=== PATIENT | male | born 1965 | race Caucasian/White ===

== ENCOUNTER 2016-11-12 13:44 | Outpatient (CLI) | payer MEDICARE | END 2016-11-12 13:45 | disposition home or self-care (01) | DX: R06.02 Shortness of breath (principal) ==

== ENCOUNTER 2016-11-27 13:30 | Outpatient (CLI) | payer MEDICARE ==
[2016-11-27] MEDS ORDERED: ALBUTEROL NEB 2.5 MG/3 ML INH ONE (14:15)
== END 2016-11-27 13:31 | disposition home or self-care (01) ==
DX: R06.02 Shortness of breath (principal); F17.201 Nicotine dependence, unspecified, in remission
CPT/HCPCS: 94060; 94664; 94729; 94761; J7613

== ENCOUNTER 2016-12-18 18:36 | Outpatient (CLI) | payer MEDICARE | END 2016-12-18 23:59 | disposition critical access hospital (66) | DX: R07.9 Chest pain, unspecified (principal) | CPT/HCPCS: A0425; A0427 ==

== ENCOUNTER 2016-12-18 18:58 | Observation (INO) | payer MEDICARE ==
[2016-12-18] MEDS ORDERED: ASPIRIN CHEW 81 MG TABLET PO STA (20:36)
[2016-12-18] MEDS ORDERED: SODIUM CHLORIDE FLUSH 0.9% 10 ML SYRINGE IVP PRN (21:43)
[2016-12-18] MEDS ORDERED: ONDANSETRON ODT 4 MG TABLET TL PRN (21:43)
[2016-12-18] MEDS ORDERED: ONDANSETRON 4 MG/2 ML VIAL IVP PRN (21:43)
[2016-12-18] MEDS ORDERED: oxyCODONE 5 MG TABLET PO PRN (22:07)
[2016-12-19] MEDS: SODIUM CHLORIDE FLUSH 0.9% 10 ML SYRINGE IVP SCH ×2 (00:37→06:42)
[2016-12-19] MEDS: NITROGLYCERIN SL 0.4 MG TABLET SL PRN ×2 (01:12→01:21)
[2016-12-19] MEDS ORDERED: LORazepam 0.5 MG TABLET PO PRN ×2 (02:06→06:27)
[2016-12-19] MEDS ORDERED: RIFAXIMIN 550 MG PO SCH (09:00)
[2016-12-19] MEDS ORDERED: NADOLOL 20 MG PO SCH (09:00)
[2016-12-19] MEDS ORDERED: LACTULOSE 30 GM PO SCH (09:00)
[2016-12-19] MEDS ORDERED: OMEPRAZOLE 20 MG PO SCH (09:00)
[2016-12-19] MEDS ORDERED: LITHIUM 300 MG PO SCH (09:00)
[2016-12-19] MEDS ORDERED: POLYETHYLENE GLYCOL 3350 17 GM PACKET PO SCH (09:00)
[2016-12-19] MEDS ORDERED: ALPRAZolam 0.25 MG TABLET PO PRN (10:11)
== END 2016-12-19 11:30 | disposition home or self-care (01) ==
DX: K70.30 Alcoholic cirrhosis of liver without ascites (principal); R07.89 Other chest pain; F41.1 Generalized anxiety disorder; F17.211 Nicotine dependence, cigarettes, in remission; Z87.898 Personal history of other specified conditions; R73.9 Hyperglycemia, unspecified; I10 Essential (primary) hypertension; J44.9 Chronic obstructive pulmonary disease, unspecified; G47.00 Insomnia, unspecified; F31.9 Bipolar disorder, unspecified; Z99.81 Dependence on supplemental oxygen; Z82.49 Family history of ischemic heart disease and other diseases of the circulatory system; Z91.5 Personal history of self-harm
CPT/HCPCS: 36415; 71010; 80048; 80053; 81003; 83690; 84484; 85025; 85610; 85730; 93005; 93010; 99284; 99285; A9270; G0378

== ENCOUNTER 2017-01-06 10:46 | Outpatient (CLI) | payer MEDICARE ==
[2017-01-06 11:19] LABS: BASOPHILS % (AUTO) 0.7 %; EOSINOPHILS # (AUTO) 0.1 10^3/uL (0.0-0.7); EOSINOPHILS % (AUTO) 3.1 %; HCT - HEMATOCRIT 40.6 % (42.0-52.0); HGB - HEMOGLOBIN 14.1 g/dL (14.0-18.0); LYMPHOCYTES # (AUTO) 1.2 10^3/uL (1.5-3.5); LYMPHOCYTES % (AUTO) 26.8 %; MEAN CORPUSCULAR HEMOGLOBIN 33.7 pg (27.0-31.0); MEAN CORPUSCULAR HGB CONC 34.8 g/dL (32.0-36.0); MEAN CORPUSCULAR VOLUME 96.9 fL (80.0-94.0); MEAN PLATELET VOLUME 9.6 fL (7.4-11.4); MONOCYTES # (AUTO) 0.4 10^3/uL (0.0-1.0); MONOCYTES % (AUTO) 9.8 %; NEUTROPHILS # (AUTO) 2.6 10^3/uL (1.5-6.6); NEUTROPHILS % (AUTO) 59.6 %; NUCLEATED RED BLOOD CELLS AUTO 0.1 /100WBC; RED BLOOD COUNT 4.19 10^6/uL (4.70-6.10); RED CELL DISTRIBUTION WIDTH 14.7 % (12.0-15.0); UNCORRECTED WHITE BLOOD COUNT 4.4 x10^3/uL; WHITE BLOOD COUNT 4.4 x10^3/uL (4.8-10.8)
[2017-01-06 11:31] LABS: ALBUMIN/GLOBULIN RATIO 1.3 (1.0-2.2); BILIRUBIN,TOTAL 2.4 mg/dL (0.2-1.0); CALCIUM 9.1 mg/dL (8.5-10.3); CREATININE 0.9 mg/dL (0.6-1.2); POTASSIUM 3.8 mmol/L (3.5-5.0); TOTAL PROTEIN 7.2 g/dL (6.7-8.2)
[2017-01-06 12:08] LABS: HEMOGLOBIN A1C 0.44 g/dL
== END 2017-01-06 10:47 | disposition home or self-care (01) ==
LOC: LAB 10:46
PROVIDERS: ATTEND Nurse Practitioner Family
DX: K74.60 Unspecified cirrhosis of liver (principal); F31.9 Bipolar disorder, unspecified
CPT/HCPCS: 36415; 80053; 80178; 82140; 83036; 84443; 85025; 85610

== ENCOUNTER 2017-01-18 11:01 | Outpatient (CLI) | payer MEDICARE ==
--- NOTE | 2017-01-18 16:24 | Ultrasound Report ---
LIMITED ABDOMINAL ULTRASOUND: 01/18/2017 CLINICAL HISTORY: A 52-year-old male with cirrhosis. FINDINGS: Liver is enlarged and has a heterogeneous parenchymal pattern consistent with cirrhosis. On sagittal images, the liver length is at least 16 cm. Liver also demonstrates a recanalized umbili deb vein consistent with developing varices. No dilated intrahepatic ducts are seen. Common hepatic duct is within normal limits measuring 3.4 mm. Gallbladder once again demonstrates a mildly thickened wall. This is unchanged as compared to 2015. This thickened wall may be a result of cirrhosis. Other possibility is chronic cholecystitis although patient had no positive Lora sign. Multiple mobile stones are once again noted within the gallbladder. They range in size from a few millimeters to 6 mm. The number of calculi within the g allbladder appears to have increased since preceding exam. Portion of the pancreas visualized on today's exam shows no significant abnormality. Right kidney measures 9.9 cm without pyelocaliceal system dilatation. IMPRESSION: 1. HEPATOMEGALY IS NOTED WITH PARENCHYMAL PATTERN CONSISTENT WITH CIRRHOSIS. THIS IS NOT SIGNIFICAN TLY CHANGED COMPARED TO 07/30/2016. 2. SIGNS OF VARICES ARE SEEN WITH RECANALIZED UMBILICAL VEIN. 3. CHOLELITHIASIS IS NOTED. THE NUMBER OF CALCULI ARE INCREASED WITHIN THE GALLBLADDER DISCUSSED ABOVE. 4. GALLBLADDER WALL THICKENING IS NOTED. THIS IS A NONSPECIFIC FINDING. IT IS UNCHANGED COMPARE D TO PRECEDING EXAM. IT MAY BE RELATED TO CIRRHOSIS. SECONDARY CONSIDERATION IS CHRONIC CHOLECYSTIT IS. PATIENT DID NOT DEMONSTRATE POSITIVE LORA SIGN ON TODAY'S EXAM. JOB #: [id number] EXT JOB #:[id number]
== END 2017-01-18 11:02 | disposition home or self-care (01) ==
LOC: DI 11:01
PROVIDERS: ATTEND Nurse Practitioner Family
DX: K74.60 Unspecified cirrhosis of liver (principal); I86.8 Varicose veins of other specified sites; K80.20 Calculus of gallbladder without cholecystitis without obstruction
CPT/HCPCS: 76705

== ENCOUNTER 2017-05-07 08:56 | Outpatient (CLI) | payer MEDICARE | END 2017-05-07 08:57 | disposition home or self-care (01) | LOC: LAB 08:56 | DX: F31.81 Bipolar II disorder (principal) | CPT/HCPCS: 36415; 80178 ==

== ENCOUNTER 2017-05-14 09:03 | Outpatient (CLI) | payer MEDICARE ==
[2017-05-14 09:45] LABS: INR 1.3 (0.8-1.2); PT - PROTHROMBIN TIME 14.4 secs (9.9-12.6)
== END 2017-05-14 09:04 | disposition home or self-care (01) ==
LOC: LAB 09:03
PROVIDERS: ATTEND Surgery
DX: K72.90 Hepatic failure, unspecified without coma (principal); Z51.81 Encounter for therapeutic drug level monitoring
CPT/HCPCS: 36415; 85610

== ENCOUNTER 2017-05-18 07:42 | Day surgery (SDC) | payer MEDICARE ==
[2017-05-18] MEDS ORDERED: LACTATED RINGERS 1,000 ML IV ONE (08:20)
[2017-05-18] MEDS ORDERED: BENZOCAINE/TETRACAINE/BUTAMBEN SPRAY 56 GM TOP ONE (09:25)
[2017-05-18] MEDS ORDERED: PROPOFOL 200 MG/20 ML VIAL IVP ONE (10:00)
[2017-05-18 11:17] VITALS: BP 120/72
== END 2017-05-18 07:43 | disposition home or self-care (01) ==
LOC: SDS 07:42
PROVIDERS: ATTEND Surgery
PROC: 0DBL8ZX Excision of Transverse Colon, Via Natural or Artificial Opening Endoscopic, Diagnostic (ICD-10-PCS; 2017-05-18)
PROC: 0DJ08ZZ Inspection of Upper Intestinal Tract, Via Natural or Artificial Opening Endoscopic (ICD-10-PCS; principal; 2017-05-18 09:00)
PROC: 0DBP8ZX Excision of Rectum, Via Natural or Artificial Opening Endoscopic, Diagnostic (ICD-10-PCS; 2017-05-18 09:00)
DX: I85.00 Esophageal varices without bleeding (principal); K29.70 Gastritis, unspecified, without bleeding; D12.3 Benign neoplasm of transverse colon; K63.5 Polyp of colon; K62.1 Rectal polyp; K21.9 Gastro-esophageal reflux disease without esophagitis; K64.8 Other hemorrhoids; K59.8 Other specified functional intestinal disorders; J45.909 Unspecified asthma, uncomplicated; K74.60 Unspecified cirrhosis of liver; F41.9 Anxiety disorder, unspecified; I10 Essential (primary) hypertension; Z87.891 Personal history of nicotine dependence
CPT/HCPCS: 43235; 45380; 45385; 88305; A9270; J7120

== ENCOUNTER 2017-06-14 07:42 | Outpatient (CLI) | payer MEDICARE ==
[2017-06-14 08:20] LABS: BASOPHILS # (AUTO) 0.2 10^3/uL (0.0-0.1); BASOPHILS % (AUTO) 2.6 %; EOSINOPHILS # (AUTO) 0.4 10^3/uL (0.0-0.7); EOSINOPHILS % (AUTO) 6.4 %; HCT - HEMATOCRIT 45.3 % (42.0-52.0); HGB - HEMOGLOBIN 15.4 g/dL (14.0-18.0); LYMPHOCYTES # (AUTO) 0.8 10^3/uL (1.5-3.5); LYMPHOCYTES % (AUTO) 13.8 %; MEAN CORPUSCULAR HEMOGLOBIN 31.7 pg (27.0-31.0); MEAN CORPUSCULAR VOLUME 93.4 fL (80.0-94.0); MEAN PLATELET VOLUME 9.4 fL (7.4-11.4); MONOCYTES # (AUTO) 0.5 10^3/uL (0.0-1.0); MONOCYTES % (AUTO) 8.5 %; NEUTROPHILS % (AUTO) 68.7 %; NUCLEATED RED BLOOD CELLS AUTO 0.4 /100WBC; RED BLOOD COUNT 4.85 10^6/uL (4.70-6.10); RED CELL DISTRIBUTION WIDTH 15.5 % (12.0-15.0); UNCORRECTED WHITE BLOOD COUNT 5.9 x10^3/uL; WHITE BLOOD COUNT 5.9 x10^3/uL (4.8-10.8)
[2017-06-14 08:31] LABS: INR 1.2 (0.8-1.2); PT - PROTHROMBIN TIME 13.2 secs (9.9-12.6)
[2017-06-14 08:38] LABS: HEMOGLOBIN A1C 0.49 g/dL
[2017-06-14 08:40] LABS: ALBUMIN/GLOBULIN RATIO 1.2 (1.0-2.2); BILIRUBIN,TOTAL 3.3 mg/dL (0.2-1.0); BUN - BLOOD UREA NITROGEN 15 mg/dL (6-20); CALCIUM 9.7 mg/dL (8.5-10.3); CARBON DIOXIDE - CO2 19 mmol/L (21-32); CHLORIDE 112 mmol/L (101-111); CREATININE 0.8 mg/dL (0.6-1.2); GFR - MDRD 102 (>89); GLUCOSE 106 mg/dL (70-100); POTASSIUM 3.9 mmol/L (3.5-5.0); SODIUM 141 mmol/L (135-145); TOTAL PROTEIN 7.4 g/dL (6.7-8.2)
[2017-06-14 09:25] LABS: THYROID STIMULATING HORMONE < 0.08 uIU/mL (0.34-5.60)
--- NOTE | 2017-06-14 10:23 | Ultrasound Report ---
RIGHT UPPER QUADRANT ULTRASOUND: 06/14/2017 CLINICAL INDICATION: Hepatic failure. COMPARISON: 01/18/2017 TECHNIQUE: Real-time scanning was performed with insurance healthcare representative static images obtained. FINDINGS: The liver measures 16 cm. Hepatic echotexture is heterogeneous, with a nodular contour, c ompatible with cirrhosis. No focal parenchymal lesion or intrahepatic biliary dilatation is seen. T he common bile duct measures 3 mm. The gallbladder again demonstrates cholelithiasis and wall thicke donavan. The right kidney measures 11.2 cm, and demonstrates no hydronephrosis. No free fluid is prese nt. IMPRESSION: STABLE CHANGES OF CIRRHOSIS. NO SIGNIFICANT INTERVAL CHANGE FROM 01/18/2017. JOB #: [id number] EXT JOB #:[id number]
== END 2017-06-14 07:43 | disposition home or self-care (01) ==
LOC: DI 07:42
PROVIDERS: ATTEND Nurse Practitioner Family
DX: K74.60 Unspecified cirrhosis of liver (principal); K72.90 Hepatic failure, unspecified without coma
CPT/HCPCS: 36415; 76705; 80053; 82140; 83036; 84439; 84443; 85025; 85610

== ENCOUNTER 2018-01-12 09:38 | Outpatient (CLI) | payer OTHER, MEDICARE ==
[2018-01-12 12:40] LABS: ALBUMIN 3.7 g/dL (3.2-5.5); BILIRUBIN,TOTAL 2.1 mg/dL (0.2-1.0); CREATININE 0.8 mg/dL (0.6-1.2); TOTAL PROTEIN 7.3 g/dL (6.7-8.2)
== END 2018-01-12 09:39 ==
LOC: LAB.N 09:38
PROVIDERS: ATTEND Nurse Practitioner
DX: K76.7 Hepatorenal syndrome (principal); K72.90 Hepatic failure, unspecified without coma; Z72.51 High risk heterosexual behavior
CPT/HCPCS: 36415; 80053; 87491; 87591

== ENCOUNTER 2018-01-20 09:03 | Outpatient (CLI) | payer OTHER, MEDICARE ==
--- NOTE | 2018-01-20 10:45 | Ultrasound Report ---
COMPLETE ABDOMINAL ULTRASOUND: 01/20/2018 CLINICAL INDICATION: Hepatic failure, hepatorenal syndrome. COMPARISON: 06/14/2017. TECHNIQUE: Real-time scanning was performed with screening representative static images obtained. FINDINGS: The liver measures 15.9 cm. Hepatic echogenicity is again heterogeneous, with nodular contour, compatible with cirrhosis. No focal parenchymal lesion or intrahepatic biliary dilatation is seen. The common bile duct measures 4 mm. Multiple mobile gallstones are seen in an otherwise unremarkable gallbladder. The visualized pancreas is unremarkable. The kidneys appear normal, with the right measuring 11.4 cm and the left measuring 11.6 cm. The spleen is enlarged, measuring 14.7 cm, without focal lesion. The abdominal aorta is normal in caliber. The inferior vena cava is unremarkable. No free fluid is present. IMPRESSION: STABLE CIRRHOTIC CHANGES IN THE LIVER. SPLENOMEGALY. NO ASCITES. TD: 01/20/2018 10:34
== END 2018-01-20 09:04 | disposition home or self-care (01) ==
LOC: DI 09:03
PROVIDERS: ATTEND Nurse Practitioner
DX: K76.7 Hepatorenal syndrome (principal)
CPT/HCPCS: 76700